=== PATIENT | male | born 2005 | race Caucasian/White ===

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

== ENCOUNTER 2023-04-13 15:38 | Emergency (ER) | payer BC ==
[2023-04-13] MEDS ORDERED: Ibuprofen 800 MG Tab PO ONE (16:01)
[2023-04-13] MEDS ORDERED: Diphtheria,Pertussis(Acell),Tetanus Vaccine 0.5 ML Syringe IM ONE (16:01)
== END 2023-04-13 16:32 | disposition home or self-care (01) ==
LOC: JD.ED 15:38
DX: S61.250A Open bite of right index finger without damage to nail, initial encounter (principal); L08.9 Local infection of the skin and subcutaneous tissue, unspecified; F17.210 Nicotine dependence, cigarettes, uncomplicated; Z79.899 Other long term (current) drug therapy; Z23 Encounter for immunization; W55.01XA Bitten by cat, initial encounter
CPT/HCPCS: 90471; 90715; 99283; A9270

== ENCOUNTER 2025-02-03 22:47 | Emergency (ER) | payer BC, OTHER | END 2025-02-04 01:00 | disposition home or self-care (01) | LOC: JD.ED 22:47 | DX: S60.022A Contusion of left index finger without damage to nail, initial encounter (principal); Z79.899 Other long term (current) drug therapy; X58.XXXA Exposure to other specified factors, initial encounter | CPT/HCPCS: 73140-26-F1; 73140-F1; 99283 ==